=== PATIENT | female | born 1990 | race Caucasian/White ===

== ENCOUNTER 2017-06-11 23:45 | Emergency (ER) | payer SELFPAY, OTHER ==
[2017-06-12 02:23] LABS: BASO # 0.1 10^3/uL (0.0-0.2); BASO % 0.6 % (0.0-1.0); EOS # 0.5 10^3/uL (0.0-0.50); HEMATOCRIT 38.6 % (36.0-47.0); IMMATURE GRANULOCYTE % 0.3 % (0-3.0); LYMPH # 3.3 10^3/uL (1.5-6.5); MEAN CORPUSCULAR HEMOGLOBIN 30.9 pg (27.0-33.0); MEAN CORPUSCULAR HGB CONC 33.7 g/dl (32.0-36.5); MEAN CORPUSCULAR VOLUME 91.7 fl (80.0-96.0); MONO # 0.9 10^3/uL (0.0-0.8); MONO % 7.8 % (0.0-5.0); NEUTROPHILS # 6.9 10^3/uL (1.8-7.7); NEUTROPHILS % 59.3 % (36.0-66.0); PLATELET COUNT, AUTOMATED 207 10^3/uL (150-450); RED BLOOD COUNT 4.21 10^6/uL (4.00-5.40); RED CELL DISTRIBUTION WIDTH 12.1 % (11.5-14.5); WHITE BLOOD COUNT 11.6 10^3/uL (4.0-10.0)
[2017-06-12 02:54] LABS: CONTROL LINE HCG INT CTR LINE PRESENT; HCG, SERUM QUALITATIVE NEGATIVE (NEGATIVE)
[2017-06-12 03:24] LABS: APPEARANCE, URINE CLOUDY (CLEAR); BACTERIA, URINE AUTO NEGATIVE (NEGATIVE); BILIRUBIN, URINE AUTO NEGATIVE (NEGATIVE); BLOOD, URINE BLOOD 1+ (NEGATIVE); COLOR, URINE YELLOW (YELLOW); GLUCOSE, URINE (UA) AUTO NEGATIVE (NEGATIVE); KETONE, URINE AUTO NEGATIVE (NEGATIVE); LEUKOCYTE ESTERASE, URINE AUTO 1+ (NEGATIVE); MUCUS, URINE SMALL (NEGATIVE); NITRITE, URINE AUTO NEGATIVE (NEGATIVE); PROTEIN, URINE AUTO NEGATIVE (NEGATIVE); RBC, URINE AUTO 1 /HPF (0-3); SPECIFIC GRAVITY URINE AUTO 1.009 (1.002-1.035); SQUAMOUS EPITHELIAL CELL UR AU 15 /HPF (0-6); UROBILINOGEN, URINE AUTO 0.2 mg/dL (0.0-2.0); WBC, URINE AUTO 2 /HPF (0-3)
== END 2017-06-12 04:20 | disposition home or self-care (01) ==
LOC: M ED 23:45
DX: N94.89 Other specified conditions associated with female genital organs and menstrual cycle (principal); N83.299 Other ovarian cyst, unspecified side; F17.200 Nicotine dependence, unspecified, uncomplicated; Z88.2 Allergy status to sulfonamides; Z88.8 Allergy status to other drugs, medicaments and biological substances
CPT/HCPCS: 76856

== ENCOUNTER 2017-11-24 10:42 | Emergency (ER) | payer SELFPAY ==
[2017-11-24 11:31] LABS: KETONE, URINE AUTO RFX NEGATIVE (NEGATIVE); MUCUS, URINE RFX SMALL (NEGATIVE); RBC, URINE AUTO RFX TNTC /HPF (0-3); SPECIFIC GRAVITY UR AUTO RFX 1.021 (1.002-1.035); SQUAM EPITHELIAL CELL UR AURFX 11 /HPF (0-6)
[2017-11-24 11:44] LABS: LEUKOCYTE ESTERASE UR AUTO RFX 2+ (NEGATIVE); NITRITE, URINE AUTO RFX POSITIVE (NEGATIVE); WBC, URINE AUTO RFX TNTC /HPF (0-3)
[2017-11-24 11:46] LABS: CONTROL LINE UCG INT CTR LINE PRESENT; URINE PREG TEST NEGATIVE (NEGATIVE)
[2017-11-24] MEDS: CIPROFLOXACIN 500 MG TAB PO (12:00)
[2017-11-24] MEDS: PHENAZOPYRIDINE 100 MG TAB PO (12:01)
== END 2017-11-24 12:08 | disposition home or self-care (01) ==
LOC: M ED 10:42
DX: N30.91 Cystitis, unspecified with hematuria (principal); Z88.1 Allergy status to other antibiotic agents; Z88.2 Allergy status to sulfonamides; Z88.8 Allergy status to other drugs, medicaments and biological substances; F17.210 Nicotine dependence, cigarettes, uncomplicated
CPT/HCPCS: 84703

== ENCOUNTER 2018-01-07 22:47 | Emergency (ER) | payer SELFPAY ==
[2018-01-08] MEDS: BENZONATATE 100 MG CAP PO (00:30)
[2018-01-08] MEDS: ALBUTEROL SULFATE 2.5 MG/0.5 ML INH NEB SOLN NEB (01:09)
[2018-01-08] MEDS ORDERED: ALBUTEROL 90 MCG/ACT 8GM HFA INHALER As Ordered ×2 (02:05→02:07)
[2018-01-08] MEDS ORDERED: ALBUTEROL 90 MCG/ACT 8GM HFA INHALER INH (02:15)
== END 2018-01-08 02:24 | disposition home or self-care (01) ==
LOC: M ED 01-08 02:24
DX: J06.9 Acute upper respiratory infection, unspecified (principal); Z88.2 Allergy status to sulfonamides; Z88.8 Allergy status to other drugs, medicaments and biological substances; Z91.048 Other nonmedicinal substance allergy status; Z79.899 Other long term (current) drug therapy
CPT/HCPCS: 71046

== ENCOUNTER 2018-11-24 15:30 | Emergency (ER) | payer SELFPAY ==
[~2018-11-24] VITALS: Ht 157.5 cm; Wt 65.9 kg
[~2018-11-24 15:30] MED LIST: CIPR-249 PO; PRED20TA PO; PROAAER10 INH; PYRI1TAB5 PO; TESS100C PO
[2018-11-24] MEDS ORDERED: TRIA25CR TOP (18:00)
[2018-11-24 18:13] VITALS: BP 127/68
== END 2018-11-24 18:14 | disposition home or self-care (01) ==
LOC: M ED 15:30
DX: L30.9 Dermatitis, unspecified (principal); Z88.2 Allergy status to sulfonamides; Z88.8 Allergy status to other drugs, medicaments and biological substances

== ENCOUNTER 2019-05-10 17:23 | Emergency (ER) | payer OTHER, SELFPAY ==
[~2019-05-10 17:23] MED LIST changes: +TRIA25CR TOP
[2019-05-10] MEDS ORDERED: ADACEL/BOOSTRIX VACCINE (DIPHTH/PERTUSS/ACELL/TETANUS)0.5ML SYR (90715) IM ONE (18:00)
[2019-05-10] MEDS ORDERED: LIDOCAINE 1% MDV 20ML VIAL IM ONE (18:00)
[2019-05-10 18:36] VITALS: BP 132/80
== END 2019-05-10 18:41 | disposition home or self-care (01) ==
LOC: M ED 17:23
DX: S61.211A Laceration without foreign body of left index finger without damage to nail, initial encounter (principal); W26.0XXA Contact with knife, initial encounter; Y92.59 Other trade areas as the place of occurrence of the external cause; Y93.89 Activity, other specified; Y99.0 Civilian activity done for income or pay; F17.200 Nicotine dependence, unspecified, uncomplicated; Z88.2 Allergy status to sulfonamides; Z88.1 Allergy status to other antibiotic agents; Z88.8 Allergy status to other drugs, medicaments and biological substances

== ENCOUNTER 2019-05-22 12:25 | Emergency (ER) | payer OTHER ==
[~2019-05-22] VITALS: Ht 157.5 cm; Wt 69.1 kg
[2019-05-22 12:26] VITALS: BP 121/73
== END 2019-05-22 12:57 | disposition home or self-care (01) ==
LOC: M ED 12:25
DX: Z48.02 Encounter for removal of sutures (principal); Z88.2 Allergy status to sulfonamides; Z88.8 Allergy status to other drugs, medicaments and biological substances

== ENCOUNTER 2019-09-30 22:07 | Emergency (ER) | payer MEDICAID, OTHER, SELFPAY ==
[~2019-09-30] VITALS: Ht 157.5 cm; Wt 67.7 kg
[2019-09-30 23:51] LABS: BASO # 0.1 10^3/uL (0.0-0.2); BASO % 0.5 % (0.0-1.0); EOS # 0.5 10^3/uL (0.0-0.5); EOS % 4.6 % (0.0-3.0); HEMATOCRIT 43.5 % (36.0-47.0); LYMPH # 3.4 10^3/uL (1.5-5.0); LYMPH % 29.6 % (24.0-44.0); MEAN CORPUSCULAR HEMOGLOBIN 31.2 pg (27.0-33.0); MEAN CORPUSCULAR HGB CONC 34.5 g/dl (32.0-36.5); MEAN CORPUSCULAR VOLUME 90.4 fl (80.0-96.0); MONO # 0.6 10^3/uL (0.0-0.8); MONO % 5.2 % (0.0-5.0); NEUTROPHILS # 6.8 10^3/uL (1.5-8.5); NEUTROPHILS % 59.8 % (36.0-66.0); PLATELET COUNT, AUTOMATED 242 10^3/uL (150-450); RED BLOOD COUNT 4.81 10^6/uL (4.00-5.40); WHITE BLOOD COUNT 11.4 10^3/uL (4.0-10.0)
[2019-10-01 00:44] LABS: ALBUMIN 4.6 GM/DL (3.2-5.2); ALT/SGPT 18 U/L (12-78); BILIRUBIN,DIRECT < 0.1 MG/DL (0.0-0.2); BILIRUBIN,TOTAL 0.3 MG/DL (0.2-1.0); BLOOD UREA NITROGEN 15 MG/DL (7-18); CALCIUM LEVEL 9.2 MG/DL (8.5-10.1); CARBON DIOXIDE LEVEL 22 MEQ/L (21-32); CHLORIDE LEVEL 106 MEQ/L (98-107); CREATININE FOR GFR 0.76 MG/DL (0.55-1.30); GLOMERULAR FILTRATION RATE > 60.0 (>60); GLUCOSE, FASTING 74 MG/DL (70-100); LIPASE 170 U/L (73-393); POTASSIUM SERUM 5.5 MEQ/L (3.5-5.1); SODIUM LEVEL 136 MEQ/L (136-145); TOTAL PROTEIN 8.6 GM/DL (6.4-8.2)
[2019-10-01 01:07] LABS: HCG, SERUM QUALITATIVE POSITIVE (NEGATIVE)
[2019-10-01 01:46] LABS: HCG, SERUM QUANTITATIVE 122 MIU/ML
--- NOTE | 2019-10-01 03:02 | REPVR ---
PROCEDURE INFORMATION: Exam: US First Trimester, Transabdominal and US , Transvaginal Exam date and time: 10/01/2019 2:10 AM Age: 28 years old Clinical indication: complicated by abdominal or pelvic pain; Lower; First trimester; Gestational age or lmp: 09/06/19; ; Additional info: Left sided adnexal pain, positive TECHNIQUE: Imaging protocol: Real-time transabdominal obstetrical ultrasound of the maternal pelvis and a first trimester , less than 14 weeks 0 days, with image documentation. Transvaginal imaging was used for better evaluation of the fetus and adnexa. COMPARISON: No relevant prior studies available. FINDINGS: Gestation: No definitive intrauterine gestational sac is visualized. Ectopic cannot be excluded. Heart rate: N/A. Placenta: N/A. Amniotic fluid: N/A. BIOMETRY: Estimated gestational age: N/A. MATERNAL: Uterus: The uterus measures 7.5 x 3.3 x 3.5 cm. The endometrial stripe measures 9 mm. No uterine mass identified. Cervix: Unremarkable, as visualized. Right adnexa: The right ovary measures 4.4 x 3.1 x 3.4 cm. Within the right ovary, there is a 1.2 x 1.0 x 1.1 cm cystic abnormality, suggestive of a corpus luteum cyst. No internal vascular flow is visualized. There is preservation of blood flow within the right ovary. A few follicles are seen within the right ovary. Left adnexa: The left ovary measures 3.1 x 2.2 x 2.9 cm. A few small follicles are identified within the left ovary. Preservation of blood flow within the left ovary. Intraperitoneal space: Moderate free fluid is identified within the cul-de-sac. Additional fluid is seen within the adnexae bilaterally. IMPRESSION: 1. No definitive intrauterine gestational sac is visualized. Ectopic cannot be excluded. Correlation with serial hCG levels and follow-up ultrasonography are recommended. 2. Moderate free fluid is identified within the cul-de-sac. Additional fluid is seen within the adnexae bilaterally. 3. Within the right ovary, there is a 1.2 x 1.0 x 1.1 cm cystic abnormality, suggestive of a corpus luteum cyst. No internal vascular flow is visualized. Electronically signed by: Brijesh Lopez On 10/01/2019 03:02:08 AM
[2019-10-01 03:43] VITALS: BP 104/67
== END 2019-10-01 03:47 | disposition home or self-care (01) ==
LOC: M ED 22:07
DX: Z32.01 Encounter for pregnancy test, result positive (principal); F12.10 Cannabis abuse, uncomplicated; F17.200 Nicotine dependence, unspecified, uncomplicated; Z88.1 Allergy status to other antibiotic agents; Z3A.00 Weeks of gestation of pregnancy not specified

== ENCOUNTER → 2019-10-03 | Outpatient (CLI) | payer MEDICAID, SELFPAY | LOC: M LAB 12:47 | PROVIDERS: ATTEND Emergency Medicine | DX: Z34.90 Encounter for supervision of normal pregnancy, unspecified, unspecified trimester (principal) ==

== ENCOUNTER → 2019-12-02 | Outpatient (CLI) | payer OTHER ==
[2019-12-02 16:12] LABS: BASO # 0.1 10^3/uL (0.0-0.2); BASO % 0.5 % (0.0-1.0); EOS # 0.3 10^3/uL (0.0-0.5); EOS % 3.2 % (0.0-3.0); HEMATOCRIT 37.4 % (36.0-47.0); HEMOGLOBIN 12.8 g/dl (12.0-15.5); LYMPH # 1.5 10^3/uL (1.5-5.0); LYMPH % 16.4 % (24.0-44.0); MEAN CORPUSCULAR HEMOGLOBIN 31.4 pg (27.0-33.0); MEAN CORPUSCULAR HGB CONC 34.2 g/dl (32.0-36.5); MEAN CORPUSCULAR VOLUME 91.9 fl (80.0-96.0); MONO # 0.6 10^3/uL (0.0-0.8); MONO % 5.9 % (0.0-5.0); NEUTROPHILS # 6.9 10^3/uL (1.5-8.5); NEUTROPHILS % 73.8 % (36.0-66.0); PLATELET COUNT, AUTOMATED 221 10^3/uL (150-450); RED BLOOD COUNT 4.07 10^6/uL (4.00-5.40); WHITE BLOOD COUNT 9.3 10^3/uL (4.0-10.0)
[2019-12-02 19:18] LABS: CHLAMYDIA DNA AMPLIFICATION NEGATIVE (NEGATIVE); GC DNA AMPLIFICATION NEGATIVE (NEGATIVE)
[2019-12-03 10:27] LABS: HEPATITIS C VIRUS ABY INDEX 0.1 INDEX (<0.8); HIV 1&2 SCREEN CENTAUR NEGATIVE (NEGATIVE)
== END ==
LOC: M PLALAB 13:23
PROVIDERS: ATTEND Advanced Practice Midwife
DX: Z34.01 Encounter for supervision of normal first pregnancy, first trimester (principal)

== ENCOUNTER → 2019-12-04 | Outpatient (REF) | payer BC, MEDICAID, OTHER | LOC: M SFHCWAGY 17:01 | PROVIDERS: ATTEND Advanced Practice Midwife | DX: Z34.01 Encounter for supervision of normal first pregnancy, first trimester (principal); Z3A.00 Weeks of gestation of pregnancy not specified ==

== ENCOUNTER → 2020-01-22 | Outpatient (CLI) | payer OTHER ==
--- NOTE | 2020-01-22 14:52 | REP ---
INDICATION: ANATOMY. COMPARISON: None. TECHNIQUE: Transabdominal obstetric sonography. FINDINGS: Scanning through the gravid uterus demonstrates a viable single intrauterine gestation in variable lie. motion is observed and heart rate is recorded at 158 beats per minute. A anterior placenta is seen, grade 1, without evidence of placenta previa. Amniotic fluid is subjectively normal. Closed cervical length is measured at 4.0 cm transabdominally. No extrauterine abnormality is observed. No anomaly is seen. The following anatomic structures are identified and felt to be sonographically unremarkable: cranium, choroid plexus, cavum, cerebellum and posterior fossa, face and profile, lungs, four-chamber heart with left and right ventricular outflow tract views, diaphragm, left-sided stomach, abdominal wall cord insertion, three-vessel umbilical cord, kidneys and bladder, spine, and upper and lower extremities. Biometry chart: BPD 4.7 cm, 20 weeks 1 day Head circumference 17.2 cm, 19 weeks 5 days Abdominal circumference 13.5 cm, 19 weeks 0 days Femur length 2.9 cm, 19 weeks 0 days Humeral length 2.9 cm, 19 weeks 4 days HC AC ratio 1.27 (1.06 to 1.25) Cephalic index normal 0.76 normal Estimated weight 274 g, 0 lb 9 oz, 17th percentile for 19 weeks 5 days IMPRESSION: Viable single intrauterine gestation at 19 weeks 3 days by today's composite sonographic criteria. MARIELA by today's sonography June 14, 2020. No complication identified. anatomic survey is felt to be complete. <Electronically signed by Hemant Hi > 01/22/20 [id number]
== END ==
LOC: M WHC 13:27
PROVIDERS: ATTEND Advanced Practice Midwife
DX: Z34.82 Encounter for supervision of other normal pregnancy, second trimester (principal)

== ENCOUNTER → 2020-01-30 | Outpatient (REF) | payer OTHER | LOC: M SFHCWAGY 16:50 | PROVIDERS: ATTEND Advanced Practice Midwife | DX: Z34.02 Encounter for supervision of normal first pregnancy, second trimester (principal) ==

== ENCOUNTER 2020-02-19 18:19 | Emergency (ER) | payer OTHER ==
[~2020-02-19] VITALS: Ht 157.5 cm; Wt 72.7 kg
[2020-02-19 19:39] LABS: APPEARANCE, URINE HAZY (CLEAR); BACTERIA, URINE AUTO 1+ (NEGATIVE); BILIRUBIN, URINE AUTO NEGATIVE (NEGATIVE); BLOOD, URINE BLOOD 3+ (NEGATIVE); COLOR, URINE YELLOW (YELLOW); GLUCOSE, URINE (UA) AUTO NEGATIVE (NEGATIVE); KETONE, URINE AUTO NEGATIVE (NEGATIVE); LEUKOCYTE ESTERASE, URINE AUTO NEGATIVE (NEGATIVE); MUCUS, URINE SMALL (NEGATIVE); NITRITE, URINE AUTO NEGATIVE (NEGATIVE); PROTEIN, URINE AUTO NEGATIVE (NEGATIVE); RBC, URINE AUTO TNTC /HPF (0-3); SPECIFIC GRAVITY URINE AUTO 1.021 (1.002-1.035); SQUAMOUS EPITHELIAL CELL UR AU 2 /HPF (0-6); WBC, URINE AUTO 2 /HPF (0-3)
[2020-02-19 19:50] LABS: BASO % 0.3 % (0.0-1.0); EOS # 0.2 10^3/uL (0.0-0.5); EOS % 1.6 % (0.0-3.0); HEMATOCRIT 36.2 % (36.0-47.0); HEMOGLOBIN 12.4 g/dl (12.0-15.5); LYMPH # 1.9 10^3/uL (1.5-5.0); LYMPH % 15.9 % (24.0-44.0); MEAN CORPUSCULAR HEMOGLOBIN 30.9 pg (27.0-33.0); MEAN CORPUSCULAR HGB CONC 34.3 g/dl (32.0-36.5); MEAN CORPUSCULAR VOLUME 90.3 fl (80.0-96.0); MONO # 0.7 10^3/uL (0.0-0.8); MONO % 5.6 % (0.0-5.0); NEUTROPHILS # 8.8 10^3/uL (1.5-8.5); NEUTROPHILS % 76.1 % (36.0-66.0); PLATELET COUNT, AUTOMATED 262 10^3/uL (150-450); RED BLOOD COUNT 4.01 10^6/uL (4.00-5.40); WHITE BLOOD COUNT 11.6 10^3/uL (4.0-10.0)
[2020-02-19 19:52] LABS: ALBUMIN 3.1 GM/DL (3.2-5.2); ALT/SGPT 13 U/L (12-78); BILIRUBIN,DIRECT < 0.1 MG/DL (0.0-0.2); BILIRUBIN,TOTAL 0.2 MG/DL (0.2-1.0); BLOOD UREA NITROGEN 12 MG/DL (7-18); CALCIUM LEVEL 8.9 MG/DL (8.5-10.1); CARBON DIOXIDE LEVEL 23 MEQ/L (21-32); CHLORIDE LEVEL 107 MEQ/L (98-107); CREATININE FOR GFR 0.61 MG/DL (0.55-1.30); GLOMERULAR FILTRATION RATE > 60.0 (>60); GLUCOSE, FASTING 83 MG/DL (70-100); POTASSIUM SERUM 3.8 MEQ/L (3.5-5.1); SODIUM LEVEL 137 MEQ/L (136-145); TOTAL PROTEIN 6.7 GM/DL (6.4-8.2)
[2020-02-19 21:06] LABS: CHLAMYDIA DNA AMPLIFICATION NEGATIVE (NEGATIVE); GC DNA AMPLIFICATION NEGATIVE (NEGATIVE)
--- NOTE | 2020-02-19 22:49 | REPVR ---
PROCEDURE INFORMATION: Exam: US , Limited Exam date and time: 02/19/2020 9:31 PM Age: 29 years old Clinical indication: Lmp or gestational age (in weeks): 23; Antepartum complications; Other: Spotting; ; Additional info: 23wks , vaginal bleeding TECHNIQUE: Imaging protocol: Real-time ultrasound of the maternal uterus with image documentation. Exam focused on the clinical indication. COMPARISON: OBS COMPLETE US 01/22/2020 1:40 PM FINDINGS: Gestation: Single live intrauterine is seen. heart rate: heart rate is 144 bpm. Placenta: Placenta is anterior. No evidence of abruption. No placenta previa. MATERNAL: Cervix: Cervix is closed measuring 34.0 mm. Left adnexa: Maternal left ovary is seen measuring 36.5 x 18.5 x 31.1 mm. Right ovary is not visualized. IMPRESSION: Placenta is anterior. No evidence of abruption. No placenta previa. Cervix is closed measuring 34.0 mm. Electronically signed by: Sanjuana Gracia On 02/19/2020 22:49:28 PM
[2020-02-19 23:18] VITALS: BP 118/65
== END 2020-02-19 23:19 | disposition home or self-care (01) ==
LOC: M ED 18:19
DX: O46.92 Antepartum hemorrhage, unspecified, second trimester (principal); Z3A.23 23 weeks gestation of pregnancy; Z88.2 Allergy status to sulfonamides

== ENCOUNTER → 2020-02-27 | Outpatient (REF) | payer OTHER | LOC: M PLALAB 13:31 | PROVIDERS: ATTEND Obstetrics & Gynecology | DX: Z34.82 Encounter for supervision of other normal pregnancy, second trimester (principal); Z3A.24 24 weeks gestation of pregnancy ==

== ENCOUNTER → 2020-03-22 | Outpatient (REF) | payer OTHER ==
[2020-03-22 16:28] LABS: HEMATOCRIT 40.6 % (36.0-47.0); HEMOGLOBIN 13.5 g/dl (12.0-15.5); MEAN CORPUSCULAR HEMOGLOBIN 31.1 pg (27.0-33.0); MEAN CORPUSCULAR HGB CONC 33.3 g/dl (32.0-36.5); MEAN CORPUSCULAR VOLUME 93.5 fl (80.0-96.0); PLATELET COUNT, AUTOMATED 262 10^3/uL (150-450); RED BLOOD COUNT 4.34 10^6/uL (4.00-5.40); WHITE BLOOD COUNT 10.7 10^3/uL (4.0-10.0)
== END ==
LOC: M PLALAB 13:28
PROVIDERS: ATTEND Obstetrics & Gynecology
DX: Z34.02 Encounter for supervision of normal first pregnancy, second trimester (principal); Z3A.24 24 weeks gestation of pregnancy

== ENCOUNTER 2020-03-27 22:39 | Inpatient (IN) | payer OTHER ==
[~2020-03-27] VITALS: Ht 157.5 cm; Wt 72.5 kg
[2020-03-27 22:57] VITALS: BP 135/81
[2020-03-27] MEDS ORDERED: LR 1,000 ML IV SCH (23:10)
[2020-03-27] MEDS ORDERED: BUTORPHANOL 2 MG/ML INJ (J0595) IV PRN (23:30)
[2020-03-27] MEDS ORDERED: PROMETHAZINE INJ 25 MG/ML VIAL (J2550) IV PRN (23:30)
[2020-03-27] MEDS ORDERED: miSOPROStol 50MCG 1/2 TABLET PV ONE (23:30)
--- NOTE | 2020-03-27 23:43 | HPEPDOC ---
Obstetrical History & Physical General Date of Admission Mar 27, 2020 at 22:39 History of Present Illness Tiarra is a 29yo with SIUP at 29w0d by lmp presenting for vaginal bleeding, soaking a heavy kendra pad. She was seen in the office on 03/26 and discovered to have an IUFD based on absent FCA on ultrasound. She was scheduled for IOL tomorrow, but presents tonight with heavy bleeding and also notes cramping intermittently. Possibly LOF. No FM. No fevers/chills/cough/CP/SOB. Information Provided By: Patient Care Care: Good Care Dating Final EDC: Jun 12, 2020 Final EDC by: LMP Antepartum Course Diagnos(e)s IUFD Past Medical History Past Obstetrical History : Past Obstetrical History: [employer] History: No pertinent history Past Medical History Medical History Benign Surgical History: Other (multiple sets of tympanostomy tubes as a child) Family History Significant Family History: No pertinent family hx Social History Marital Status: Single (life partner) Family situation: Spouse/partner home Psychosocial History: No pertinent psych hx * Smoker: current smoker (5 cig/day) Alcohol: Denies Drugs: denies Allergies Coded Allergies: citric acid (Verified Allergy, Intermediate, hives, 02/19/20) Sulfa (Sulfonamide Antibiotics) (Verified Allergy, Unknown, 02/19/20) Medications No Active Prescriptions or Reported Meds Physical Examination Physical Examination GENERAL: Alert and oriented times three. ABDOMEN: Gravid and non-tender to touch. FETUS: Is vertex (VTX) by sterile vaginal examination (SVE) and well applied to cervix with no obvious amniotic bag EXTREMITIES: No edema Laboratory Data 24H LABS Laboratory Tests 2 03/27/20 22:57: Serology Scanned Report Hepatitis B Testing Urine Culture: No Growth Pertinent Laboratoy Data Blood Type: A+ RBC Antibody Screen: Negative HIV: Negative Hepatitis B: Negative Hepatitis C: Negative Rapid Plasma Reagin: Nonreactive Rubella: Immune Chlamydia/Gonorrhea: Negative Group B Streptococcus: Unknown Glucose Tolerance Test: 125 Anatomy Ultrasound Ultrasound Date: Jan 22, 2020 Placenta Location: Anterior Normal Anatomy: Yes Placenta Previa: No Steroid Therapy Steroid Therapy: No Vaginal Examination Dilation: 4 cm Effacement: 80% Station: -2 Cervical Consistency: Soft Cervical Position: Middle Presentation: Cephalic presentation Assessment/Plan Assessment Tiarra is a 29yo with SIUP at 29w0d by lmp with known IUFD, in labor with SCE /-2. Spontaneous ROM upon presentation. Cephalic by SCE. Vitals wnl, exam benign. She has an uncomplicated PMhx other than tobacco use. Had normal anatomy u/s and all prior labs wnl. Unknown etiology of IUFD, so will perform extensive lab workup and offer autopsy/karyotype testing. Plan Admit and orient. Counseled and consented regarding delivery Diet: clear liquids Labs: T&S, CBC, RPR, HSV I/II IgM/IgG, CMV, toxoplasmosis, Varicella, APAS labs, thyroid labs Clergy consult prn Counseled on cytotec and induction of labor (IOL). At this time patient would like to allow natural labor to progress Lactated Ringers (LR): 125 mL/hr. 2mg IV stadol q4hr prn pain with 12.5mg IV phenergan q6hr Safe to proceed MD Roger Bowers Katrina D MD Mar 27, 2020 23:43
[2020-03-28] VITALS (7 sets, daily range): BP systolic 116–140; BP diastolic 58–76
[2020-03-28 00:19] LABS: BASO # 0.1 10^3/uL (0.0-0.2); BASO % 0.5 % (0.0-1.0); EOS # 0.2 10^3/uL (0.0-0.5); EOS % 1.7 % (0.0-3.0); HEMATOCRIT 41.4 % (36.0-47.0); HEMOGLOBIN 14.1 g/dl (12.0-15.5); LYMPH % 21.7 % (24.0-44.0); MEAN CORPUSCULAR HEMOGLOBIN 30.9 pg (27.0-33.0); MEAN CORPUSCULAR HGB CONC 34.1 g/dl (32.0-36.5); MEAN CORPUSCULAR VOLUME 90.8 fl (80.0-96.0); MONO # 0.7 10^3/uL (0.0-0.8); MONO % 5.1 % (0.0-5.0); NEUTROPHILS # 9.7 10^3/uL (1.5-8.5); NEUTROPHILS % 70.1 % (36.0-66.0); PLATELET COUNT, AUTOMATED 287 10^3/uL (150-450); RED BLOOD COUNT 4.56 10^6/uL (4.00-5.40); WHITE BLOOD COUNT 13.8 10^3/uL (4.0-10.0)
[2020-03-28 00:36] LABS: THYROXINE (T4) 12.6 UG/DL (4.5-12.0)
[2020-03-28] MEDS ORDERED: OXYTOCIN 30 UNITS IN 0.9% NaCl 500ML IV BAG (J2590) As Ordered ONE (02:36)
[2020-03-28] MEDS ORDERED: BENZOCAINE 20% HEMORRHOIDAL OINTMENT 28GM TUBE TOP PRN (03:00)
[2020-03-28] MEDS ORDERED: ACETAMINOPHEN 500 MG TAB PO PRN (03:00)
[2020-03-28] MEDS ORDERED: DOCUSATE SODIUM 100MG CAPSULE PO PRN (03:00)
[2020-03-28] MEDS ORDERED: ACETAMINOPHEN TAB 650MG DOSE (2X325MG) PO PRN (03:00)
[2020-03-28] MEDS ORDERED: IBUPROFEN 600MG TAB PO PRN (03:00)
[2020-03-28] MEDS ORDERED: IBUPROFEN 800 MG TAB PO PRN (03:00)
[2020-03-28] MEDS ORDERED: MEASLES,MUMPS,RUBELLA VACCINE INJ (MMR-II) (90707) SC SCH (03:00)
[2020-03-28] MEDS ORDERED: RHOGAM 300 MCG (1500 IU) INJ (J2790) IM SCH (03:00)
--- NOTE | 2020-03-28 03:22 | DNPDOC ---
[facility] [place] Delivery Note Delivery Note DATE OF DELIVERY: 03/28/20 PREDELIVERY DIAGNOSIS: 29w1d known IUFD, active labor POST DELIVERY DIAGNOSIS: same, delivered PROCEDURE: Spontaneous vaginal delivery LEGAL ARBITRATOR: Dr. Carolina Duran MD ANESTHESIA: IV stadol ESTIMATED BLOOD LOSS: 150 mL. FINDINGS: male infant, Score 0/0 DELIVERY SUMMARY: Tiarra is a 29yo [id number] s/p uncomplicated at 02:35 on 28 Mar 2020 after presenting in active labor with known IUFD that was diagnosed in office on Mar. She was 4cm on presentation and received a single dose of 50mcg cytotec PV. She needed to use the restroom and when she was coming back to bed, had pressure sensation. The fetus was delivering as I entered the room, corpus followed head without any maternal effort. Apgars 0/0. I clamped the umbilical cord x2 and cut it, placed the infant on a towel and handed baby to mother''s arms. On inspection, placenta was protruding through the cervix, so I asked patient to push and it easily delivered, intact on inspection. Placenta was extremely small for gestational age and there was a hypo-pigmented area approx 6x4cm on the surface of the placenta, possibly indicating infarct- placenta will be sent to pathology. Patient had no bleeding after, uterus was firm just above pubic brim. TAUS used to confirm no obvious retained intrauterine products. Inspection of perineum revealed no lacerations. Patient and partner were tearful but coping appropriately. Aerobic and anaerobic cultures of the placenta performed along with extensive TORCH and APAS testing done for patient which have not yet resulted. MD Roger Bowers Katrina D MD Mar 28, 2020 03:22
--- NOTE | 2020-03-28 08:21 | DS.PDOC ---
Discharge Summary General Date of Admission Mar 27, 2020 at 22:39 Date of Discharge Mar 28, 2020 Discharge Summary PROCEDURES PERFORMED DURING STAY: spontaneous vaginal delivery ADMITTING DIAGNOSES: 1. 29 weeks IUFD, active labor DISCHARGE DIAGNOSES: 1. 29 weeks IUFD, active labor COMPLICATIONS/CHIEF COMPLAINT: Water Broke - Iufd. HISTORY OF PRESENT ILLNESS/HOSPITAL COURSE: Tiarra is a 29yo [id number] s/p uncomplicated at 02:35 on 28 Mar 2020 after presenting in active labor with known IUFD that was diagnosed in office on Mar. At time of discharge, vitals are wnl, benign exam, minimal lochia. DISCHARGE MEDICATIONS: Please see below. ALLERGIES: Please see below. PHYSICAL EXAMINATION ON DISCHARGE: Gen: WDWN, resting comfortably Abdomen: soft, NTTP, fundus firm 2cm above pubic symphysis Extremities: no edema of BLE LABORATORY DATA: Please see below. DISCHARGE INSTRUCTIONS: -discharge to home -regular diet -vaginal rest no heavy lifting for 4 weeks -follow up visit in 4 weeks -return precautions for fevers/chills, increased pain or bleeding or anything else concerning to patient DISCHARGE CONDITION: Stable TIME SPENT ON DISCHARGE: Greater than 20 minutes. Carolina Duran MD Vital Signs/I&Os Vital Signs Date Time Temp Pulse Resp B/P (MAP) Pulse Ox O2 Delivery O2 Flow Rate FiO2 03/28/20 05:15 85 116/66 (83) 03/28/20 00:59 17 03/28/20 00:32 Room Air 03/27/20 22:57 98.8 I&O- Last 24 Hours up to 6 AM 03/28/20 06:00 Output Total 150 ml Balance -150 ml Laboratory Data Labs 24H Laboratory Tests 2 03/27/20 22:57: Serology Scanned Report Hepatitis B Testing 03/27/20 23:56: Immature Granulocyte % (Auto) 0.9, Neutrophils (%) (Auto) 70.1H, Lymphocytes (%) (Auto) 21.7L, Monocytes (%) (Auto) 5.1H, Eosinophils (%) (Auto) 1.7, Basophils (%) (Auto) 0.5, Neutrophils # (Auto) 9.7H, Lymphocytes # (Auto) 3.0, Monocytes # (Auto) 0.7, Eosinophils # (Auto) 0.2, Basophils # (Auto) 0.1, Nucleated Red Blood Cells % (auto) 0.0, Thyroid Stimulating Hormone (TSH) 3.070, Thyroxine (T4) 12.6H CBC/BMP Laboratory Tests 03/27/20 23:56 Microbiology Microbiology 03/28/20 Bacterial Culture, Received Pending 03/28/20 Anaerobic Culture, Received Pending Discharge Medications No Active Prescriptions or Reported Meds Allergies Coded Allergies: citric acid (Verified Allergy, Intermediate, hives, 02/19/20) Sulfa (Sulfonamide Antibiotics) (Verified Allergy, Unknown, 02/19/20) Carolina Duran MD Mar 28, 2020 08:21
[2020-03-28] MEDS ORDERED: DOK1CAP7 PO (08:24)
[2020-03-28] MEDS ORDERED: IBUP80TA PO (08:24)
[2020-03-28] MEDS ORDERED: PRENATAL VITAMINS CHEWABLE TABLET PO SCH (09:00)
[2020-04-01 11:14] LABS: DRVV SCREEN 45.1 SEC
[2020-04-01 11:17] LABS: PTT LUPUS TYPE ANTICOAG SCREEN 1.1 (0-1.2)
[2020-04-04 12:07] LABS: ANTI PARVO VIRUS LEVEL IGG 6.9 index (0.0-0.8); ANTI PARVO VIRUS LEVEL IgM 0.2 index (0.0-0.8); BETA-2 GLYCOPROTEIN I ABY IGA <9 (0-25); BETA-2 GLYCOPROTEIN I ABY IGG <9 (0-20); BETA-2 GLYCOPROTEIN I ABY IGM <9 (0-32); CARDIOLIPIN IGA ANTIBODY <9 APL U/mL (0-11); CARDIOLIPIN IGG ANTIBODY <9 GPL U/mL (0-14); CARDIOLIPIN IGM ANTIBODY 20 MPL U/mL (0-12); CYTOMEGALOVIRUS IgG ANTIBODY <0.60 U/mL (0.00-0.59); CYTOMEGALOVIRUS IgM ANTIBODY <30.0 AU/mL (0.0-29.9); HERPES ZOSTER, VARICELLA IgG 596 index (Immune >165); HERPES ZOSTER, VARICELLA IgM 1.06 index (0.00-0.90); HSV TYPE I IgM AB <1:10 titer (<1:10); HSV TYPE II IgG SPECIFIC <0.91 index (0.00-0.90); HSV TYPE II IgM ABY <1:10 titer (<1:10); TOXOPLASMA IgG ABY <3.0 IU/mL (0.0-7.1)
== END 2020-03-28 13:30 | disposition home or self-care (01) | DRG 560 ==
LOC: M LDI 22:39
PROVIDERS: ADMIT Obstetrics & Gynecology; ATTEND Obstetrics & Gynecology
PROC: 10E0XZZ Delivery of Products of Conception, External Approach (ICD-10-PCS; principal; 2020-03-28)
DX: O43.813 Placental infarction, third trimester (principal); Z37.1 Single stillbirth; Z3A.29 29 weeks gestation of pregnancy

== ENCOUNTER → 2020-04-19 | Outpatient (REF) | payer OTHER ==
[~2020-04-19] MED LIST changes: +DOK1CAP7 PO; +IBUP80TA PO
== END ==
LOC: M PLALAB 13:19
PROVIDERS: ATTEND Obstetrics & Gynecology
DX: Z39.2 Encounter for routine postpartum follow-up (principal)

== ENCOUNTER → 2021-01-22 | Outpatient (REF) | payer OTHER ==
[~2021-01-22] MED LIST changes: +DOK1CAP4 PO; -DOK1CAP7 PO
== END ==
LOC: M LAB REF 15:13
PROVIDERS: ATTEND Physician Assistant
DX: R05.9 Cough, unspecified (principal)

== ENCOUNTER → 2022-03-27 | Outpatient (CLI) | payer OTHER ==
[2022-03-27 14:35] LABS: HEMATOCRIT 40.6 % (36.0-47.0); HEMOGLOBIN 13.6 g/dl (12.0-15.5); MEAN CORPUSCULAR HEMOGLOBIN 30.8 pg (27.0-33.0); MEAN CORPUSCULAR HGB CONC 33.5 g/dl (32.0-36.5); MEAN CORPUSCULAR VOLUME 91.9 fl (80.0-96.0); PLATELET COUNT, AUTOMATED 250 10^3/uL (150-450); RED BLOOD COUNT 4.42 10^6/uL (4.00-5.40); WHITE BLOOD COUNT 7.5 10^3/uL (4.0-10.0)
[2022-03-27 15:10] LABS: HIV 1&2 SCREEN CENTAUR NEGATIVE (NEGATIVE)
[2022-03-27 15:18] LABS: HEPATITIS C VIRUS ABY INDEX 0.1 INDEX (<0.8)
[2022-03-27 17:23] LABS: GC DNA AMPLIFICATION NEGATIVE (NEGATIVE)
== END ==
LOC: M PLALAB 10:06
PROVIDERS: ATTEND Advanced Practice Midwife
DX: O09.291 Supervision of pregnancy with other poor reproductive or obstetric history, first trimester (principal); Z3A.00 Weeks of gestation of pregnancy not specified

== ENCOUNTER → 2022-04-07 | Outpatient (REF) | payer OTHER | LOC: M SFHCWAGY 10:18 | PROVIDERS: ATTEND Specialist | DX: Z34.81 Encounter for supervision of other normal pregnancy, first trimester (principal) ==

== ENCOUNTER → 2022-05-31 | Outpatient (CLI) | payer OTHER | LOC: M WHC 10:14 | PROVIDERS: ATTEND Obstetrics & Gynecology | DX: O32.1XX0 Maternal care for breech presentation, not applicable or unspecified (principal); Z3A.20 20 weeks gestation of pregnancy ==

== ENCOUNTER → 2022-07-06 | Outpatient (CLI) | payer OTHER ==
[2022-07-06 15:10] LABS: HEMATOCRIT 36.2 % (36.0-47.0); HEMOGLOBIN 12.2 g/dl (12.0-15.5); MEAN CORPUSCULAR HEMOGLOBIN 31.6 pg (27.0-33.0); MEAN CORPUSCULAR HGB CONC 33.7 g/dl (32.0-36.5); MEAN CORPUSCULAR VOLUME 93.8 fl (80.0-96.0); PLATELET COUNT, AUTOMATED 264 10^3/uL (150-450); RED BLOOD COUNT 3.86 10^6/uL (4.00-5.40)
== END ==
LOC: M PLALAB 10:30
PROVIDERS: ATTEND Obstetrics & Gynecology
DX: Z34.92 Encounter for supervision of normal pregnancy, unspecified, second trimester (principal)

== ENCOUNTER → 2022-07-27 | Outpatient (CLI) | payer OTHER | LOC: M WHC 12:41 | PROVIDERS: ATTEND Obstetrics & Gynecology | DX: O09.292 Supervision of pregnancy with other poor reproductive or obstetric history, second trimester (principal); Z3A.28 28 weeks gestation of pregnancy ==

== ENCOUNTER → 2022-08-24 | Outpatient (CLI) | payer OTHER | LOC: M WHC 11:34 | PROVIDERS: ATTEND Obstetrics & Gynecology | DX: O09.293 Supervision of pregnancy with other poor reproductive or obstetric history, third trimester (principal); Z3A.32 32 weeks gestation of pregnancy ==

== ENCOUNTER → 2022-09-20 | Outpatient (REF) | payer OTHER ==
[~2022-09-20] MED LIST changes: +METF500T13 PO; +OMEP10CASR PO
== END ==
LOC: M SFHCWAGY 17:04
PROVIDERS: ATTEND Advanced Practice Midwife
DX: O24.419 Gestational diabetes mellitus in pregnancy, unspecified control (principal)

== ENCOUNTER → 2022-09-21 | Outpatient (CLI) | payer OTHER ==
[~2022-09-21] MED LIST changes: -METF500T13 PO; -OMEP10CASR PO
== END ==
LOC: M WHC 12:15
PROVIDERS: ATTEND Obstetrics & Gynecology
DX: O09.293 Supervision of pregnancy with other poor reproductive or obstetric history, third trimester (principal); Z3A.36 36 weeks gestation of pregnancy

== ENCOUNTER → 2022-09-28 | Outpatient (CLI) | payer OTHER ==
[~2022-09-28] MED LIST changes: +METF500T13 PO; +OMEP10CASR PO
[2022-09-28 14:08] LABS: HEMATOCRIT 35.1 % (36.0-47.0); HEMOGLOBIN 11.9 g/dl (12.0-15.5); MEAN CORPUSCULAR HEMOGLOBIN 30.8 pg (27.0-33.0); MEAN CORPUSCULAR HGB CONC 33.9 g/dl (32.0-36.5); MEAN CORPUSCULAR VOLUME 90.9 fl (80.0-96.0); PLATELET COUNT, AUTOMATED 243 10^3/uL (150-450); RED BLOOD COUNT 3.86 10^6/uL (4.00-5.40); WHITE BLOOD COUNT 9.3 10^3/uL (4.0-10.0)
[2022-09-28 14:45] LABS: ALBUMIN 2.4 G/DL (3.2-5.2); ALKALINE PHOSPHATASE 134 U/L (46-116); ALT/SGPT 10 U/L (7.0-40); AST/SGOT 9 U/L (<34); BILIRUBIN,TOTAL 0.4 MG/DL (0.3-1.2); BLOOD UREA NITROGEN 10 MG/DL (9-23); CALCIUM LEVEL 9.1 MG/DL (8.5-10.1); CARBON DIOXIDE LEVEL 23 MMOL/L (20-31); CHLORIDE LEVEL 108 MMOL/L (98-107); CREATININE FOR GFR 0.68 MG/DL (0.55-1.30); GLOMERULAR FILTRATION RATE > 60.0 (>60); GLUCOSE, FASTING 60 MG/DL (60-100); POTASSIUM SERUM 4.5 MMOL/L (3.5-5.1); SODIUM LEVEL 138 MMOL/L (136-145); TOTAL PROTEIN 5.8 G/DL (5.7-8.2)
[2022-09-28 14:51] LABS: TOTAL PROTEIN,RANDOM URINE 20.6 MG/DL (0.0-14.0)
[2022-09-28 14:55] LABS: CREATININE,RANDOM URINE 109.3 MG/DL
== END ==
LOC: M PLALAB 11:50
PROVIDERS: ATTEND Obstetrics & Gynecology
DX: O16.3 Unspecified maternal hypertension, third trimester (principal); Z3A.00 Weeks of gestation of pregnancy not specified

== ENCOUNTER → 2024-02-26 | Outpatient (REF) | payer OTHER ==
[2024-02-26 13:21] LABS: TOTAL PROTEIN,RANDOM URINE 16.5 MG/DL (0.0-14.0)
[2024-02-26 13:25] LABS: CREATININE,RANDOM URINE 113.9 MG/DL
[2024-02-26 14:34] LABS: GC DNA AMPLIFICATION NEGATIVE (NEGATIVE)
== END ==
LOC: M SFHCWAGY 12:29
PROVIDERS: ATTEND Nurse Practitioner Family
DX: Z34.80 Encounter for supervision of other normal pregnancy, unspecified trimester (principal); Z87.59 Personal history of other complications of pregnancy, childbirth and the puerperium

== ENCOUNTER → 2024-03-21 | Outpatient (CLI) | payer OTHER ==
[2024-03-21 13:40] LABS: HEMATOCRIT 37.9 % (36.0-47.0); HEMOGLOBIN 13.1 g/dl (12.0-15.5); MEAN CORPUSCULAR HEMOGLOBIN 31.2 pg (27.0-33.0); MEAN CORPUSCULAR HGB CONC 34.6 g/dl (32.0-36.5); MEAN CORPUSCULAR VOLUME 90.2 fl (80.0-96.0); PLATELET COUNT, AUTOMATED 232 10^3/uL (150-450); WHITE BLOOD COUNT 6.5 10^3/uL (4.0-10.0)
[2024-03-21 14:08] LABS: HIV 1&2 SCREEN NEGATIVE (NEGATIVE)
[2024-03-21 14:17] LABS: HEPATITIS C VIRUS ABY INDEX < 0.02 INDEX (<0.8)
== END ==
LOC: M PLALAB 09:36
PROVIDERS: ATTEND Specialist
DX: Z34.80 Encounter for supervision of other normal pregnancy, unspecified trimester (principal)

== ENCOUNTER → 2024-03-21 | Outpatient (CLI) | payer OTHER ==
[2024-03-21 13:40] LABS: LDH LACTATE DEHYDROGENASE 134 U/L (120-246)
[2024-03-21 13:41] LABS: ALT/SGPT < 9 U/L (7.0-40); AST/SGOT 9 U/L (<34); BILIRUBIN,TOTAL 0.5 MG/DL (0.3-1.2); CREATININE FOR GFR 0.56 MG/DL (0.55-1.30); GLOMERULAR FILTRATION RATE > 60.0 (>60); URIC ACID 3.3 MG/DL (3.1-7.8)
[2024-03-21 14:01] LABS: HEMOGLOBIN A1c 4.6 % (4.0-6.0)
== END ==
LOC: M PLALAB 09:38
PROVIDERS: ATTEND Nurse Practitioner Family
DX: Z86.32 Personal history of gestational diabetes (principal); Z87.59 Personal history of other complications of pregnancy, childbirth and the puerperium

== ENCOUNTER → 2024-04-08 | Outpatient (CLI) | payer OTHER | LOC: M WHC 09:28 | PROVIDERS: ATTEND Nurse Practitioner Family | DX: Z34.82 Encounter for supervision of other normal pregnancy, second trimester (principal); Z3A.21 21 weeks gestation of pregnancy ==

== ENCOUNTER → 2024-05-28 | Outpatient (CLI) | payer OTHER ==
[2024-05-28 13:52] LABS: MEAN CORPUSCULAR HEMOGLOBIN 31.5 pg (27.0-33.0); MEAN CORPUSCULAR HGB CONC 34.4 g/dl (32.0-36.5); MEAN CORPUSCULAR VOLUME 91.7 fl (80.0-96.0); PLATELET COUNT, AUTOMATED 227 10^3/uL (150-450); RED BLOOD COUNT 3.49 10^6/uL (4.00-5.40); WHITE BLOOD COUNT 9.4 10^3/uL (4.0-10.0)
[2024-05-28 14:15] LABS: GLUCOSE CHALLENGE TEST 1 HOUR 193 MG/DL (LESS THAN 140)
[2024-05-28 14:51] LABS: HIV 1&2 SCREEN NEGATIVE (NEGATIVE)
[2024-05-28 14:59] LABS: HEPATITIS C VIRUS ABY INDEX 0.03 INDEX (<0.8)
[2024-05-28 15:04] LABS: GC DNA AMPLIFICATION NEGATIVE (NEGATIVE)
== END ==
LOC: M PLALAB 09:17
PROVIDERS: ATTEND Specialist
DX: Z34.82 Encounter for supervision of other normal pregnancy, second trimester (principal)